=== PATIENT | male | born 1990 | race Caucasian/White ===

== ENCOUNTER 2017-03-07 10:05 | Emergency (ER) | payer OTHER ==
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
--- NOTE | 2017-03-07 11:37 | ED ORDER SUMMARY ---
..... Patient: ROSIE QURESHI OrderSheet [facility] VisitID: [id number] [address] [place] [address] 26y, M Registration Date/Time: 03/07/2017 ORDER SHEET Weight: 91.6 kg (stated) Allergies: None GENERAL ORDERS: - (10:50 03/07/2017 Ladonna GALEANA) (10:59 DDean R.N.) Visual Acuity (10:50 03/07/2017 Ladonna GALEANA) (11:03 DDean R.N.) MEDICATION ORDERS: Tdap IM 0.5 mL (NOW) (10:43 03/07/2017 Ladonna GALEANA) (Ack 10:59 DDean R.N.) (11:04 DDean R.N.) IV FLUIDS: ORDER SHEET NOTES: [Electronically signed by Mere De La Rosa R.N. (12:53 03/07/2017)] [Electronically signed by Arpit Mace MD (14:21 03/08/2017)] [Electronically locked/signed by Mere De La Rosa R.N. (12:53 03/07/2017)]
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
--- NOTE | 2017-03-07 11:37 | ED ORDER SUMMARY ---
..... Patient: ROSIE QURESHI OrderSheet [facility] VisitID: [id number] [address] [place] [address] 26y, M Registration Date/Time: 03/07/2017 ORDER SHEET Weight: 91.6 kg (stated) Allergies: None GENERAL ORDERS: - (10:50 03/07/2017 Ladonna GALEANA) (10:59 DDean R.N.) Visual Acuity (10:50 03/07/2017 Ladonna GALEANA) (11:03 DDean R.N.) MEDICATION ORDERS: Tdap IM 0.5 mL (NOW) (10:43 03/07/2017 Ladonna GALEANA) (Ack 10:59 DDean R.N.) (11:04 DDean R.N.) IV FLUIDS: ORDER SHEET NOTES: [Electronically signed by Mere De La Rosa R.N. (12:53 03/07/2017)] [Electronically signed by Arpit Mace MD (14:21 03/08/2017)] [Electronically locked/signed by Mere De La Rosa R.N. (12:53 03/07/2017)]
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
--- NOTE | 2017-03-08 14:21 | ED MAR SUMMARY ---
..... Medication Administration Record [facility] [address] [place] [address] Patient: ROSIE QURESHI Visit ID: [id number] 26y, M Weight: 91.6 kg Height/Length: 67 in BMI: 31.7 ALLERGIES: None Given 11:04 03/07/2017 Rafael, Camille Brannon Medication Administered: TDAP [IM], Dose: 0.5 mL IM. Medication Ordered: Tdap IM 0.5 mL (NOW).
--- NOTE | 2017-03-08 14:21 | ED MAR SUMMARY ---
..... Medication Administration Record [facility] [address] [place] [address] Patient: ROSIE QURESHI Visit ID: [id number] 26y, M Weight: 91.6 kg Height/Length: 67 in BMI: 31.7 ALLERGIES: None Given 11:04 03/07/2017 Rafael, Camille Brannon Medication Administered: TDAP [IM], Dose: 0.5 mL IM. Medication Ordered: Tdap IM 0.5 mL (NOW).
--- NOTE | 2017-03-08 14:21 | ED MED RECONCILIATION SUMMARY ---
Patient: ROSIE QURESHI Medication Reconciliation Report [facility] VisitID: [id number] [address] [place] [address] 26y, M Registration Date/Time: 03/07/2017 Weight: 91.6 kg Height/Length: 67 in. BMI: 31.7 ALLERGIES: None The patient's Home Medications are listed below: THE FOLLOWING MEDICATIONS NEED TO BE RECONCILED: Atenolol Oral 50 mg, daily, for migrianes Levothyroxine Sodium Oral 112 mcg, daily The source(s) of the original Home Medication information: Not obtained. The following Medications were given to the patient in the Emergency Department: TDAP [IM] IM 0.5 mL, administered: 03/07/2017 11:04:00 AM The following Medications were prescribed to the patient: None.
--- NOTE | 2017-03-08 14:21 | ED MED RECONCILIATION SUMMARY ---
Patient: ROSIE QURESHI Medication Reconciliation Report [facility] VisitID: [id number] [address] [place] [address] 26y, M Registration Date/Time: 03/07/2017 Weight: 91.6 kg Height/Length: 67 in. BMI: 31.7 ALLERGIES: None The patient's Home Medications are listed below: THE FOLLOWING MEDICATIONS NEED TO BE RECONCILED: Atenolol Oral 50 mg, daily, for migrianes Levothyroxine Sodium Oral 112 mcg, daily The source(s) of the original Home Medication information: Not obtained. The following Medications were given to the patient in the Emergency Department: TDAP [IM] IM 0.5 mL, administered: 03/07/2017 11:04:00 AM The following Medications were prescribed to the patient: None.
--- NOTE | 2017-03-08 14:21 | ED DISCHARGE INSTRUCTIONS ---
Patient: ROSIE QURESHI General Instructions [facility] VisitID: [id number] [place] [address] 26y, M Registration Date/Time: 03/07/2017 Concussion. INSTRUCTIONS (STAY WITH YOUR MOM TODAY. YOU DO HAVE A MILD CONCUSSION. GIVEN HISTORY AND CAREFUL EXAM EXAM, YOU DO NOT HAVE FACIAL FRACTURES OR DAMAGE TO YOUR BRAIN. IMMEDIATE RECHECK IF WORSE. YOUR DIFFICULTY CONCENTRATING COULD BE A MILD POST CONCUSSION SYNDROME. IF NOT 100% NORMAL IN 7 DAYS SEE YOUR PCP). Follow-up: Follow up with your doctor in seven if not well. Understanding of the discharge instructions verbalized by patient. ADDITIONAL INFORMATION Concussion (with Wake-Up) A concussion happens when you hit your head with enough force to shake up the brain. This may cause you to lose consciousness be "knocked out" - but not always. Depending on how hard you hit your head, it will take from a few hours up to a few days to get better. Sometimes symptoms may last a few months or longer. This is called post-concussion syndrome. At first, you may have a headache, nausea, vomiting, or dizziness. You may also have problems concentrating or remembering things. This is normal. Symptoms should get better as the hours and days go by. Symptoms that get worse could be a sign of a more serious injury. This might be a bruise or bleeding in the brain. Thats why its important to watch for the warning signs listed below. Home care Follow these tips to help care for yourself at home: During the next day (24 hours) someone must stay with you. This person should wake you every 2 hours to check for the signs below. If your face or scalp swells, apply an ice pack for 20 minutes every 1 to 2 hours. Do this until the swelling starts to go down. You can make an ice pack by putting ice cubes in a plastic bag and wrapping the bag in a towel. for 20 minutes every 1-2 hours until the swelling starts to go down. You may use acetaminophen to control pain, unless another pain medicine was prescribed. If you have chronic liver or kidney disease, talk with your doctor before using these medicines. Also talk with your doctor if you ever had a stomach ulcer or GI bleeding. For the next 24 hours: Dont drink alcohol or take sedatives or medicines that make you sleepy. Dont drive or operate machinery. Avoid doing anything strenuous. Dont lift or strain. Dont return to sports or any activity that could cause you to hit your head until all symptoms are gone and you have been cleared by your doctor. A second head injury before fully recovering from the first one can lead to serious brain injury. Follow-up care Follow up with your doctor in 1 week, or as directed. Note: A radiologist will review any X-rays or CT scans that were taken. You will be told of any new findings that may affect your care. When to seek medical care Get prompt medical attention if any of these occur: Repeated vomiting Headache or dizziness that is severe or gets worse Unusual drowsiness, or unable to wake up as usual Confusion or change in behavior or speech, or memory loss Blurred vision Convulsion (seizure) Swelling on the scalp or face that gets worse Redness, warmth, or pus from the swollen area Fluid draining from or bleeding from the nose or ears You have been given the following additional information: Concussion w/ Wake-Up (Electronically signed by Arpit Mace MD 03/08/2017 14:21)
== END 2017-03-07 11:59 | disposition home or self-care (01) ==
LOC: ED SRH 10:05
DX: S06.0X0A Concussion without loss of consciousness, initial encounter (principal); Y04.0XXA Assault by unarmed brawl or fight, initial encounter; Y93.89 Activity, other specified; Y92.410 Unspecified street and highway as the place of occurrence of the external cause; Y99.9 Unspecified external cause status; Z23 Encounter for immunization; F17.210 Nicotine dependence, cigarettes, uncomplicated; Z79.899 Other long term (current) drug therapy

== ENCOUNTER 2017-04-10 08:42 | Outpatient (CLI) | payer OTHER | END 2017-04-10 23:00 | LOC: RT SRH 08:42 | DX: J98.8 Other specified respiratory disorders (principal); J44.9 Chronic obstructive pulmonary disease, unspecified; F17.210 Nicotine dependence, cigarettes, uncomplicated; E03.9 Hypothyroidism, unspecified ==